=== PATIENT | female | born 1995 | race Caucasian/White ===

== ENCOUNTER 2018-06-27 21:55 | Emergency (ER) | payer BC ==
[~2018-06-27] VITALS: Ht 172.7 cm; Wt 63.5 kg
[2018-06-27] MEDS ORDERED: NORFLEX100 MG PO (23:51)
[2018-06-27] MEDS ORDERED: NAPROSYN500 MG PO (23:51)
[2018-06-27 23:59] VITALS: BP 123/97
== END 2018-06-28 00:04 | disposition home or self-care (01) ==
LOC: ER 21:55
DX: S16.1XXA Strain of muscle, fascia and tendon at neck level, initial encounter (principal); R20.2 Paresthesia of skin; W04.XXXA Fall while being carried or supported by other persons, initial encounter; Y93.45 Activity, cheerleading; Y92.89 Other specified places as the place of occurrence of the external cause; Y99.8 Other external cause status

== ENCOUNTER 2019-10-10 09:29 | Emergency (ER) | payer OTHER ==
[~2019-10-10] VITALS: Ht 172.7 cm; Wt 61.2 kg
[~2019-10-10 09:29] MED LIST: NAPROSYN500 MG PO; NORFLEX100 MG PO; VALIUM5 MG PO
[2019-10-10] MEDS ORDERED: METHOCARBAMOL500 M2 PO (11:15)
[2019-10-10] MEDS ORDERED: NAPROSYN500 MG PO (11:15)
[2019-10-10 11:21] VITALS: BP 121/87
== END 2019-10-10 11:21 | disposition home or self-care (01) ==
LOC: ER 09:29
DX: M43.6 Torticollis (principal); S16.1XXA Strain of muscle, fascia and tendon at neck level, initial encounter; J45.909 Unspecified asthma, uncomplicated; F17.210 Nicotine dependence, cigarettes, uncomplicated; X58.XXXA Exposure to other specified factors, initial encounter; Y93.89 Activity, other specified; Y92.89 Other specified places as the place of occurrence of the external cause; Y99.8 Other external cause status